=== PATIENT | female | born 1990 | race Caucasian/White ===

== ENCOUNTER 2017-03-26 14:58 | Emergency (ER) | payer MEDICAID ==
[~2017-03-26] VITALS: Ht 160 cm; Wt 64.0 kg
[2017-03-26 15:49] VITALS: Ht 160 cm; Wt 64.0 kg
[2017-03-26 22:40] VITALS: BP 135/86
== END 2017-03-26 22:40 | disposition home or self-care (01) ==
LOC: ED 14:58
DX: O26.891 Other specified pregnancy related conditions, first trimester (principal); N89.8 Other specified noninflammatory disorders of vagina; Z3A.13 13 weeks gestation of pregnancy
CPT/HCPCS: 87491; 87591